=== PATIENT | female | born 1965 | race Hispanic/Latino ===

== ENCOUNTER 2018-04-05 13:32 | Inpatient (IN) | payer OTHER ==
[2018-04-05 15:18] LABS: Basophils # (Auto) 0.1 K/mm3 (0.0-0.1); Basophils % (Auto) 0.7 % (0.0-1.8); Eosinophils # (Auto) 0.3 K/mm3 (0.0-0.4); Eosinophils % (Auto) 2.2 % (0.0-4.3); Hematocrit 49.8 % (30.3-42.9); Hemoglobin 17.4 gm/dl (10.1-14.3); Lymphocytes # (Auto) 1.6 K/mm3 (1.2-5.4); Lymphocytes % (Auto) 10.6 % (13.4-35.0); Mean Corpuscular HGB Conc 35 % (30-34); Mean Corpuscular Hemoglobin 33 pg (28-32); Mean Corpuscular Volume 94 fl (79-97); Monocytes # (Auto) 1.1 K/mm3 (0.0-0.8); Monocytes % (Auto) 7.6 % (0.0-7.3); Platelet Count 341 K/mm3 (140-440); Red Blood Count 5.32 M/mm3 (3.65-5.03); Red Cell Distribution Width 12.7 % (13.2-15.2)
[2018-04-05 15:28] LABS: Bacteria,Urine 2+ /HPF (Negative); Bilirubin,Urine NEG (Negative); Blood,Urine MOD (Negative); Color,Urine Yellow (Yellow); Mucus,Urine FEW /HPF
[2018-04-05 15:29] LABS: WBC,Urine > 182.0 /HPF (0.0-6.0)
[2018-04-05 15:37] LABS: Alanine Aminotransferase 12 units/L (7-56); Albumin 3.9 g/dL (3.9-5); BUN/Creatinine Ratio 22; Blood Urea Nitrogen 13 mg/dL (7-17); Calcium 9.8 mg/dL (8.4-10.2); Hemolysis Index 16; Lipase 18 units/L (13-60)
[2018-04-05] MEDS ORDERED: MORPHINE IV ONE ×3 (16:58→20:39)
[2018-04-05] MEDS ORDERED: ZOFRAN IV ONE (16:58)
[2018-04-05] MEDS ORDERED: NACL 0.9% 1000 ML 1,000 ML IV ONE (16:58)
--- NOTE | 2018-04-05 17:02 | Emergency Department Report ---
<LAUREL PENNY - Last Filed: 04/06/18 03:16> ED Abdominal Pain HPI - General Chief Complaint: Abdominal Pain Stated Complaint: LEFT FLANK PAIN Time Seen by Provider: 04/05/18 16:58 - Related Data Allergies Allergy/AdvReac Type Severity Reaction Status Date / Time No Known Allergies Allergy Verified 04/05/18 22:18 ED Review of Systems ROS: Stated complaint: LEFT FLANK PAIN Other details as noted in HPI ED Course Vital Signs 04/05/18 04/05/18 04/06/18 14:18 22:30 01:21 Temperature 97.5 F L 100.2 F H Pulse Rate 91 H 106 H 122 H Respiratory 18 18 17 Rate Blood Pressure 137/87 Blood Pressure 128/76 131/73 [Right] O2 Sat by Pulse 100 99 99 Oximetry 04/06/18 04/06/18 03:40 04:27 Temperature 99.1 F 98.7 F Pulse Rate 128 H 102 H Respiratory 18 17 Rate Blood Pressure Blood Pressure [Right] O2 Sat by Pulse 97 98 Oximetry ED Medical Decision Making - Lab Data Result diagrams: 04/05/18 14:45 04/05/18 14:45 - Radiology Data Radiology results: report reviewed, image reviewed FINAL REPORT PROCEDURE: CT ABDOMEN PELVIS W CON TECHNIQUE: Computerized axial tomography of the abdomen and pelvis was performed after the IV injection of iodinated nonionic contrast. HISTORY: LLQ and Left Flank pain COMPARISON: No prior studies are available for comparison. FINDINGS: Lower Lung aguilar: No focal abnormality seen. Upper Abdomen: The liver is unremarkable. Gallbladder is distended otherwise unremarkable. The adrenal glands, the pancreas and the spleen show no abnormalities. Kidneys, Ureters and Urinary bladder: There is moderate left-sided hydronephrosis secondary to a calculus in the distal 3rd of the left ureter measuring 7.3 x 3.0 millimeters on coronal image 76 series 602, axial image 125 series 2. This is located approximately 2.5 centimeter from the left ureterovesical junction. Left ureter is diffusely distended. There is slight decreased perfusion in the left kidney compared to the right suggesting a high-grade obstruction. Nonobstructing calculus is visualized in the lower 3rd of the left kidney measuring 12.5 x 6.1 by 8.8 millimeters. The kidneys otherwise are unremarkable. Urinary bladder is only partially filled although shows no focal abnormality. Retroperitoneum: Atherosclerotic changes are seen in the abdominal aorta. No aneurysm is visualized. Nonspecific subcentimeter lymph nodes are seen in the retroperitoneum. No pathologically enlarged lymph nodes are identified. Bowel: No focal bowel loop abnormalities are identified. No evidence of bowel obstruction or ascites. There is no free intraperitoneal gas. The appendix is not clearly visualized. Reproductive organs: Uterus appears to be enlarged showing heterogeneous density and calcifications. I suspect a fibroid uterus is present. No abnormal adnexal masses are seen. Other: No acute bony abnormalities are seen. IMPRESSION: Moderate left-sided hydronephrosis secondary to a distal left ureteral calculus as described. High-grade obstruction is suspected. Nonobstructing calculus also seen in the left kidney. Fibroid uterus suspected. Follow-up pelvic ultrasound would be helpful. Transcribed By: ROBY Dictated By: JULIO FAM MD Electronically Authenticated By: JULIO FAM MD Signed Date/Time: 04/05/181921 DD/ 21 TD/TT: 04/05/181921 - Medical Decision Making This patient's been handed off to me pH refill. I made a call to the gaming commissioner urologist for concerns of a moderate left side hydronephrosis secondary to a distal left ureter calculus as described above which it measures 7.3 x 3.0 mm and she has a left ureter diffuse distended with a slight decreased perfusion to the left kidney compared to the right. She has a nonobstructing car collided visualized in the lower third of the left kidney measuring 12.5 x 6.1 x 8.8 mm. This provider called she reports that the patient needs to follow up in his clinic at 9:00 in the morning and to give her plenty of pain medication. This provider will go ahead and give 1 g of Rocephin to cover the patient. Spoke with hospitalist to admit patient for a retractable pain. In hydronephrosis with obstructing renal calculi 7.3 x 3. Patient has spiked a fever of 100.3 and is tachycardic at 133. We will give patient Tylenol 650 mg. Patient will be transferred upstairs to her room. Critical care attestation.: If time is entered above; I have spent that time in minutes in the direct care of this critically ill patient, excluding procedure time. ED Disposition Clinical Impression: Kidney stone on left side UTI (urinary tract infection) Qualifiers: Urinary tract infection type: acute pyelonephritis Qualified Code(s): N10 - Acute pyelonephritis Disposition: OP ADMIT IP TO THIS HOSP Is pt being admited?: Yes Does the pt Need Aspirin: No Condition: Stable <ZEESHAN DOUGLAS D - Last Filed: 04/07/18 10:11> ED Abdominal Pain HPI - General Source: patient Mode of arrival: Ambulatory Limitations: No Limitations - History of Present Illness Initial Comments: Patient reports nausea, left lower quadrant and left flank pain that started last night. She reports she was seen and treated at [facility] 3 months ago and diagnosed with a kidney infection. She denies any other medical history MD Complaint: abdominal pain (LLQ), flank pain (left) Onset/Timin -: hour(s) Location: LLQ, L flank Radiation: L flank Migration to: no migration Severity: severe Severity scale (0 -10): 10 Quality: aching, sharp Consistency: constant Improves With: nothing Worsens With: eating, movement Context: other (none) Associated Symptoms: nausea. denies: vomiting, diarrhea, fever, chills, constipation, dysuria, hematemesis, hematochezia, melena, hematuria, anorexia, syncope Treatments Prior to Arrival: other (Tylenol) - Related Data LMP (females 10-50): other (menopausal) ED Review of Systems Constitutional: denies: chills, fever Eyes: denies: eye pain, eye discharge, vision change ENT: denies: ear pain, throat pain Respiratory: denies: cough, orthopnea, shortness of breath, SOB with exertion, SOB at rest, stridor, wheezing Cardiovascular: denies: chest pain, palpitations, dyspnea on exertion, orthopnea , edema, syncope, paroxysmal nocturnal dyspnea Endocrine: no symptoms reported Gastrointestinal: abdominal pain, nausea. denies: vomiting, diarrhea, constipation, hematemesis, melena, hematochezia Genitourinary: denies: urgency, dysuria, discharge Musculoskeletal: back pain (left flank). denies: joint swelling, arthralgia Skin: denies: rash, lesions Neurological: denies: headache, weakness, paresthesias Psychiatric: denies: anxiety, depression Hematological/Lymphatic: denies: easy bleeding, easy bruising ED Past Medical Hx - Past Medical History Hx Kidney Stones: Yes (STONES) - Social History Smoking Status: Current Every Day Smoker Substance Use Type: None ED Physical Exam - General Limitations: No Limitations General appearance: alert, in no apparent distress, other - ENT ENT exam: Present: mucous membranes moist - Neck Neck exam: Present: normal inspection, full ROM. Absent: tenderness, meningismus, lymphadenopathy, thyromegaly - Respiratory Respiratory exam: Present: normal lung sounds bilaterally. Absent: respiratory distress, wheezes, rales, rhonchi, stridor, chest wall tenderness, accessory muscle use, decreased breath sounds, prolonged expiratory - Cardiovascular Cardiovascular Exam: Present: regular rate, normal rhythm, normal heart sounds. Absent: bradycardia, tachycardia, irregular rhythm, systolic murmur, diastolic murmur, rubs, gallop - GI/Abdominal GI/Abdominal exam: Present: soft, tenderness (LLQ), normal bowel sounds. Absent : distended, guarding, rebound, rigid, diminished bowel sounds, hyperactive bowel sounds, hypoactive bowel sounds, organomegaly, mass, bruit, pulsatile mass , hernia - Expanded GI/Abdominal Exam Expanded GI/Abdominal exam: Absent: psoas sign, obturator sign, heel tap sign, Tobin's sign, Rovsing's sign, tenderness at Mcburney's Point, ascites - Extremities Exam Extremities exam: Present: normal inspection, full ROM, normal capillary refill. Absent: tenderness, pedal edema, joint swelling, calf tenderness - Back Exam Back exam: Present: normal inspection, full ROM, CVA tenderness (L). Absent: tenderness, CVA tenderness (R), muscle spasm, paraspinal tenderness, vertebral tenderness - Neurological Exam Neurological exam: Present: alert, oriented X3, CN II-XII intact, normal gait, reflexes normal. Absent: motor sensory deficit - Psychiatric Psychiatric exam: Present: normal affect, normal mood - Skin Skin exam: Present: warm, dry, intact, normal color. Absent: rash ED Course - Reevaluation(s) Reevaluation #1: 04/05/18 17:04 Normal saline, pain medication, antiemetic, laboratory and radiology studies ordered Reevaluation #2: 04/05/18 18:03 pain ordered ED Medical Decision Making - Lab Data Result diagrams: 04/05/18 14:45 04/05/18 14:45 Lab Results 04/05/18 04/05/18 04/05/18 Range/Units 14:45 14:45 14:45 WBC 15.0 H (4.5-11.0) K/mm3 RBC 5.32 H (3.65-5.03) M/mm3 Hgb 17.4 H (10.1-14.3) gm/dl Hct 49.8 H (30.3-42.9) % MCV 94 (79-97) fl MCH 33 H (28-32) pg MCHC 35 H (30-34) % RDW 12.7 L (13.2-15.2) % Plt Count 341 (140-440) K/mm3 Lymph % (Auto) 10.6 L (13.4-35.0) % [place] % (Auto) 7.6 H (0.0-7.3) % Eos % (Auto) 2.2 (0.0-4.3) % Baso % (Auto) 0.7 (0.0-1.8) % Lymph # 1.6 (1.2-5.4) K/mm3 [place] # 1.1 H (0.0-0.8) K/mm3 Eos # 0.3 (0.0-0.4) K/mm3 Baso # 0.1 (0.0-0.1) K/mm3 Seg Neutrophils % 78.9 H (40.0-70.0) % Seg Neutrophils # 11.8 H (1.8-7.7) K/mm3 Sodium 140 (137-145) mmol/L Potassium 4.8 (3.6-5.0) mmol/L Chloride 100.5 (98-107) mmol/L Carbon Dioxide 27 (22-30) mmol/L Anion Gap 17 mmol/L BUN 13 (7-17) mg/dL Creatinine 0.6 L (0.7-1.2) mg/dL Estimated GFR > 60 ml/min BUN/Creatinine Ratio 22 % Glucose 110 H (65-100) mg/dL Calcium 9.8 (8.4-10.2) mg/dL Total Bilirubin 1.30 H (0.1-1.2) mg/dL AST 19 (5-40) units/L ALT 12 (7-56) units/L Alkaline Phosphatase 65 (35-129) units/L Total Protein 7.7 (6.3-8.2) g/dL Albumin 3.9 (3.9-5) g/dL Albumin/Globulin Ratio 1.0 % Lipase 18 (13-60) units/L Urine Color Yellow (Yellow) Urine Turbidity Clear (Clear) Urine pH 7.0 (5.0-7.0) Ur Specific [place] 1.020 (1.003-1.030) Urine Protein 100 mg/dl (Negative) mg/dL Urine Glucose (UA) Neg (Negative) mg/dL Urine Ketones Neg (Negative) mg/dL Urine Blood Mod (Negative) Urine Nitrite Pos (Negative) Urine Bilirubin Neg (Negative) Urine Urobilinogen 4.0 (<2.0) mg/dL Ur Leukocyte Esterase Lg (Negative) Urine WBC (Auto) > 182.0 H (0.0-6.0) /HPF Urine RBC (Auto) 41.0 (0.0-6.0) /HPF U Epithel Cells (Auto) 4.0 (0-13.0) /HPF Urine Bacteria (Auto) 2+ (Negative) /HPF Urine WBC Clumps 3+ /HPF Urine Mucus Few /HPF Temp Pulse Resp BP Pulse Ox 99.0 F 86 18 148/97 97 04/07/18 08:24 04/07/18 08:24 04/07/18 08:24 04/07/18 08:24 04/07/18 08:24 - Differential Diagnosis Left Kidney Hydronephrosis, Retractable Pain
--- NOTE | 2018-04-05 19:26 | Cat Scan Report ---
FINAL REPORT PROCEDURE: CT ABDOMEN PELVIS W CON TECHNIQUE: Computerized axial tomography of the abdomen and pelvis was performed after the IV injection of iodinated nonionic contrast. HISTORY: LLQ and Left Flank pain COMPARISON: No prior studies are available for comparison. FINDINGS: Lower Lung aguilar: No focal abnormality seen. Upper Abdomen: The liver is unremarkable. Gallbladder is distended otherwise unremarkable. The adrenal glands, the pancreas and the spleen show no abnormalities. Kidneys, Ureters and Urinary bladder: There is moderate left-sided hydronephrosis secondary to a calculus in the distal 3rd of the left ureter measuring 7.3 x 3.0 millimeters on coronal image 76 series 602, axial image 125 series 2. This is located approximately 2.5 centimeter from the left ureterovesical junction. Left ureter is diffusely distended. There is slight decreased perfusion in the left kidney compared to the right suggesting a high-grade obstruction. Nonobstructing calculus is visualized in the lower 3rd of the left kidney measuring 12.5 x 6.1 by 8.8 millimeters. The kidneys otherwise are unremarkable. Urinary bladder is only partially filled although shows no focal abnormality. Retroperitoneum: Atherosclerotic changes are seen in the abdominal aorta. No aneurysm is visualized. Nonspecific subcentimeter lymph nodes are seen in the retroperitoneum. No pathologically enlarged lymph nodes are identified. Bowel: No focal bowel loop abnormalities are identified. No evidence of bowel obstruction or ascites. There is no free intraperitoneal gas. The appendix is not clearly visualized. Reproductive organs: Uterus appears to be enlarged showing heterogeneous density and calcifications. I suspect a fibroid uterus is present. No abnormal adnexal masses are seen. Other: No acute bony abnormalities are seen. IMPRESSION: Moderate left-sided hydronephrosis secondary to a distal left ureteral calculus as described. High-grade obstruction is suspected. Nonobstructing calculus also seen in the left kidney. Fibroid uterus suspected. Follow-up pelvic ultrasound would be helpful.
[2018-04-05] MEDS ORDERED: ROCEPHIN/NS 1 GM/50 ML 1 GM/50 ML BAG IV ONE (22:10)
[2018-04-05] MEDS ORDERED: cefTRIAXone 1 GM in NACL 0.9% 20 ML IV ONE (22:15)
[2018-04-05] MEDS ORDERED: ZOFRAN IV PRN (23:20)
[2018-04-06] MEDS: TYLENOL PO PRN (01:30)
[2018-04-06] MEDS ORDERED: TYLENOL ONE (01:32)
[2018-04-06] MEDS ORDERED: NACL 0.9% 1000 ML 1,000 ML ONE (03:47)
[2018-04-06] MEDS ORDERED: NACL 0.9% 1000 ML 1,000 ML IV ONE (03:55)
[2018-04-06] MEDS: DILAUDID IV PRN ×3 (06:13→19:49)
[2018-04-06] MEDS: NACL 0.9% 1000 ML 1,000 ML IV SCH ×3 (06:13→19:40)
--- NOTE | 2018-04-06 08:31 | Progress Note ---
Assessment and Plan Assessment and plan: 52-year-old woman who presented with left flank pain, found to have obstructive calculi on the left side causing left hydronephrosis and UTI Obstructive uropathy -Consult urology Acute nephrolithiasis with obstruction -Urology consult for lithotripsy UTI Continue antibiotics, obtain urine cultures History Interval history: c/o L flank pain Review of systems Constitutional: No fevers, no malaise, no joint pains CVS: No chest pain, no orthopnea, no dyspnea on exertion, no pedal edema GI: No abdominal pain, no diarrhea, no vomiting, no constipation Respiratory: No shortness of breath, no wheezing, no coughing Hospitalist Physical - Physical exam Narrative exam: General.: Appears well, no distress, nontoxic HEENT: Moist mucous membranes, extraocular muscles intact, no lymphadenopathy Neck: supple Cardiac: S1-S2 heard Lungs: clear to auscultation bilaterally Abdomen: soft , nontender, nondistended, bowel sounds positive left flank tender Extremities: no edema clubbing or cyanosis Skin: no rash or lesions Neurologic: no gross focal deficits Psych: appropriate behavior, appropriate mood, corporative, judgment intact - Constitutional Vitals: Temp Pulse Resp BP Pulse Ox 98.7 F 102 H 17 131/73 98 04/06/18 04:27 04/06/18 04:27 04/06/18 04:27 04/06/18 01:21 04/06/18 04:27 Results - Labs CBC & Chem 7: 04/05/18 14:45 04/05/18 14:45 Labs: Laboratory Last Values WBC 15.0 K/mm3 (4.5-11.0) H 04/05/18 14:45 RBC 5.32 M/mm3 (3.65-5.03) H 04/05/18 14:45 Hgb 17.4 gm/dl (10.1-14.3) H 04/05/18 14:45 Hct 49.8 % (30.3-42.9) H 04/05/18 14:45 MCV 94 fl (79-97) 04/05/18 14:45 MCH 33 pg (28-32) H 04/05/18 14:45 MCHC 35 % (30-34) H 04/05/18 14:45 RDW 12.7 % (13.2-15.2) L 04/05/18 14:45 Plt Count 341 K/mm3 (140-440) 04/05/18 14:45 Lymph % (Auto) 10.6 % (13.4-35.0) L 04/05/18 14:45 [place] % (Auto) 7.6 % (0.0-7.3) H 04/05/18 14:45 Eos % (Auto) 2.2 % (0.0-4.3) 04/05/18 14:45 Baso % (Auto) 0.7 % (0.0-1.8) 04/05/18 14:45 Lymph # 1.6 K/mm3 (1.2-5.4) 04/05/18 14:45 [place] # 1.1 K/mm3 (0.0-0.8) H 04/05/18 14:45 Eos # 0.3 K/mm3 (0.0-0.4) 04/05/18 14:45 Baso # 0.1 K/mm3 (0.0-0.1) 04/05/18 14:45 Seg Neutrophils % 78.9 % (40.0-70.0) H 04/05/18 14:45 Seg Neutrophils # 11.8 K/mm3 (1.8-7.7) H 04/05/18 14:45 Sodium 140 mmol/L (137-145) 04/05/18 14:45 Potassium 4.8 mmol/L (3.6-5.0) 04/05/18 14:45 Chloride 100.5 mmol/L (98-107) 04/05/18 14:45 Carbon Dioxide 27 mmol/L (22-30) 04/05/18 14:45 Anion Gap 17 mmol/L 04/05/18 14:45 BUN 13 mg/dL (7-17) 04/05/18 14:45 Creatinine 0.6 mg/dL (0.7-1.2) L 04/05/18 14:45 Estimated GFR > 60 ml/min 04/05/18 14:45 BUN/Creatinine Ratio 22 % 04/05/18 14:45 Glucose 110 mg/dL (65-100) H 04/05/18 14:45 Calcium 9.8 mg/dL (8.4-10.2) 04/05/18 14:45 Total Bilirubin 1.30 mg/dL (0.1-1.2) H 04/05/18 14:45 AST 19 units/L (5-40) 04/05/18 14:45 ALT 12 units/L (7-56) 04/05/18 14:45 Alkaline Phosphatase 65 units/L (35-129) 04/05/18 14:45 Total Protein 7.7 g/dL (6.3-8.2) 04/05/18 14:45 Albumin 3.9 g/dL (3.9-5) 04/05/18 14:45 Albumin/Globulin Ratio 1.0 % 04/05/18 14:45 Lipase 18 units/L (13-60) 04/05/18 14:45 Urine Color Yellow (Yellow) 04/05/18 14:45 Urine Turbidity Clear (Clear) 04/05/18 14:45 Urine pH 7.0 (5.0-7.0) 04/05/18 14:45 Ur Specific [place] 1.020 (1.003-1.030) 04/05/18 14:45 Urine Protein 100 mg/dl mg/dL (Negative) 04/05/18 14:45 Urine Glucose (UA) Neg mg/dL (Negative) 04/05/18 14:45 Urine Ketones Neg mg/dL (Negative) 04/05/18 14:45 Urine Blood Mod (Negative) 04/05/18 14:45 Urine Nitrite Pos (Negative) 04/05/18 14:45 Urine Bilirubin Neg (Negative) 04/05/18 14:45 Urine Urobilinogen 4.0 mg/dL (<2.0) 04/05/18 14:45 Ur Leukocyte Esterase Lg (Negative) 04/05/18 14:45 Urine WBC (Auto) > 182.0 /HPF (0.0-6.0) H 04/05/18 14:45 Urine RBC (Auto) 41.0 /HPF (0.0-6.0) 04/05/18 14:45 U Epithel Cells (Auto) 4.0 /HPF (0-13.0) 04/05/18 14:45 Urine Bacteria (Auto) 2+ /HPF (Negative) 04/05/18 14:45 Urine WBC Clumps 3+ /HPF 04/05/18 14:45 Urine Mucus Few /HPF 04/05/18 14:45
--- NOTE | 2018-04-06 09:12 | History and Physical Report ---
CHIEF COMPLAINT: Left flank pain. HISTORY OF PRESENT ILLNESS: The patient is a 52-year-old female who was having left flank pain that started the night prior to presentation, there was also history of associated nausea. The patient states she was seen and treated at [facility] three months ago with a diagnosis of kidney infection. There was no history of fever, no history of chills, no history of vomiting or diarrhea. The patient presented to the Emergency Room where she was evaluated and found to have left ureteral calculus, and presented for admission. PAST MEDICAL HISTORY: Pertinent for kidney stones. PAST SURGICAL HISTORY: Unremarkable. FAMILY HISTORY: Noncontributory. SOCIAL HISTORY: The patient smokes cigarettes, does not drink alcohol, and does not use illicit drugs. MEDICATIONS: The patient's home medications are not known. ALLERGIES: There are no known drug allergies. REVIEW OF SYSTEMS: CONSTITUTIONAL: There is no fever, no chills, no diaphoresis. HEENT: There is no headache or sore throat. CARDIOVASCULAR SYSTEM: There is no chest pain or orthopnea. RESPIRATORY SYSTEM: There is no shortness of breath or cough. GASTROINTESTINAL SYSTEM: There is nausea with no vomiting, no abdominal pain, diarrhea or constipation. NEUROLOGICAL SYSTEM: There is no numbness, no dizziness, no altered mental status. MUSCULOSKELETAL SYSTEM: There is no joint pain or swelling. DERMATOLOGICAL SYSTEM: There is no skin rash or itching. GENITOURINARY SYSTEM: There is left flank pain. No dysuria or hematuria. Rest of system review is normal. PHYSICAL EXAMINATION: GENERAL: At the time of my exam, the patient was found to be alert, oriented x 3, and in mild distress due to left flank pain. VITAL SIGNS: Shows temperature of 97.5 degree Fahrenheit, pulse of 94, respiration 18, blood pressure 137/87, O2 sat of 100% on room air. HEENT: Exam showed pupils to be equal, round, and reactive to light and accommodation. Extraocular muscles are intact. NECK: Supple, with no JVD or carotid bruit. CARDIOVASCULAR SYSTEM: Show normal first and second heart sounds with no gallops or murmurs. RESPIRATORY SYSTEM: Show good air entry on both sides of the lung with no abnormal breath sounds. GASTROINTESTINAL SYSTEM: Show abdomen to be full, soft, nontender, with no organomegaly or rigidity. NEUROLOGIC: Exam shows no focal deficit. MUSCULOSKELETAL SYSTEM: Show no joint swelling or tenderness. DERMATOLOGICAL SYSTEM: Show no skin rash. GENITOURINARY SYSTEM: Showing left costovertebral angle tenderness. PERTINENT LABORATORY AND IMAGING STUDIES: The patient had CBC done with elevated white count 15,000, with a high hemoglobin of 17.4, high hematocrit of 49.8, with normal platelet, CBC with differential showing high monocyte count of 7.6%, and high segmented neutrophil count of 78.9. The patient's chemistry shows normal electrolytes with slightly elevated total bilirubin of 1.3. The patient's urinalysis show positive urine nitrites with large leukocyte esterase, elevated urine wbc of greater than 182, and high urine rbc of 41, with 2+ bacteria. The patient's imaging studies show CT of the abdomen and pelvis with contrast that was read to show moderate left-sided hydronephrosis secondary to a calculus in the distal end of the left ureter measuring 7.3 x 3 mm and is located approximately 2.5 cm from the left ureterovesical junction, and also, there is finding of a normal obstructing calculus measuring 12.5 x 6 x 8.8 mm. DIAGNOSES: 1. Left ureteral calculus with hydronephrosis. 2. Urinary tract infection. CARE OF PLAN: 1. The patient will be admitted to medical/surgical [place] and will be on intravenous normal saline running at 150 mL an hour. 2. The patient will be on intravenous ceftriaxone 1 g daily for treatment of urinary tract infection. 3. The patient will be on intravenous hydromorphone or Dilaudid 0.5 mg and also intravenous Zofran 4 mg every 6 hours for nausea and vomiting. 4. The patient will be on Tylenol 650 mg every 4 hours for fever and headache. 5. The patient will have a Urology consult with . 6. The patient's home medications will be reconciled and started accordingly when they are known. JOB# [id number] [facility]/BHARAT BRODERICK
[2018-04-06] MEDS ORDERED: ROCEPHIN/NS 1 GM/50 ML 1 GM/50 ML BAG IV SCH (10:00)
[2018-04-06] MEDS: HEPARIN SUB-Q SCH ×2 (10:45→22:20)
[2018-04-06] MEDS ORDERED: cefTRIAXone 1 GM in NACL 0.9% 20 ML IV SCH (22:00)
[2018-04-07] MEDS: TYLENOL PO PRN (01:59)
[2018-04-07] MEDS: NACL 0.9% 1000 ML 1,000 ML IV SCH ×2 (02:02→10:47)
[2018-04-07] MEDS: HEPARIN SUB-Q SCH (09:56)
[2018-04-07] MEDS: DILAUDID IV PRN ×2 (10:46→15:38)
--- NOTE | 2018-04-07 12:48 | Progress Note ---
Assessment and Plan Assessment and plan: 52-year-old woman who presented with left flank pain, found to have obstructive calculi on the left side causing left hydronephrosis and UTI CT Abdomen and pelvis Moderate left-sided hydronephrosis secondary to a distal left ureteral calculus as described. High-grade obstruction is suspected. Nonobstructing calculus also seen in the left kidney. Fibroid uterus suspected. Follow-up pelvic ultrasound would be helpful. Obstructive uropathy -Consult urology, spoke to Dr Dolan , for stent tomorrow Acute nephrolithiasis with obstruction -Urology consult for lithotripsy UTI Continue antibiotics, obtain urine cultures History Interval history: c/o L flank pain Review of systems Constitutional: No fevers, no malaise, no joint pains CVS: No chest pain, no orthopnea, no dyspnea on exertion, no pedal edema GI: No abdominal pain, no diarrhea, no vomiting, no constipation Respiratory: No shortness of breath, no wheezing, no coughing Hospitalist Physical - Physical exam Narrative exam: General.: Appears well, no distress, nontoxic HEENT: Moist mucous membranes, extraocular muscles intact, no lymphadenopathy Neck: supple Cardiac: S1-S2 heard Lungs: clear to auscultation bilaterally Abdomen: soft , nontender, nondistended, bowel sounds positive left flank tender Extremities: no edema clubbing or cyanosis Skin: no rash or lesions Neurologic: no gross focal deficits Psych: appropriate behavior, appropriate mood, corporative, judgment intact - Constitutional Vitals: Temp Pulse Resp BP Pulse Ox 99.0 F 86 18 148/97 97 04/07/18 08:24 04/07/18 08:24 04/07/18 08:24 04/07/18 08:24 04/07/18 08:24 Results - Labs CBC & Chem 7: 04/05/18 14:45 04/05/18 14:45 Labs: Laboratory Last Values WBC 15.0 K/mm3 (4.5-11.0) H 04/05/18 14:45 RBC 5.32 M/mm3 (3.65-5.03) H 04/05/18 14:45 Hgb 17.4 gm/dl (10.1-14.3) H 04/05/18 14:45 Hct 49.8 % (30.3-42.9) H 04/05/18 14:45 MCV 94 fl (79-97) 04/05/18 14:45 MCH 33 pg (28-32) H 04/05/18 14:45 MCHC 35 % (30-34) H 04/05/18 14:45 RDW 12.7 % (13.2-15.2) L 04/05/18 14:45 Plt Count 341 K/mm3 (140-440) 04/05/18 14:45 Lymph % (Auto) 10.6 % (13.4-35.0) L 04/05/18 14:45 [place] % (Auto) 7.6 % (0.0-7.3) H 04/05/18 14:45 Eos % (Auto) 2.2 % (0.0-4.3) 04/05/18 14:45 Baso % (Auto) 0.7 % (0.0-1.8) 04/05/18 14:45 Lymph # 1.6 K/mm3 (1.2-5.4) 04/05/18 14:45 [place] # 1.1 K/mm3 (0.0-0.8) H 04/05/18 14:45 Eos # 0.3 K/mm3 (0.0-0.4) 04/05/18 14:45 Baso # 0.1 K/mm3 (0.0-0.1) 04/05/18 14:45 Seg Neutrophils % 78.9 % (40.0-70.0) H 04/05/18 14:45 Seg Neutrophils # 11.8 K/mm3 (1.8-7.7) H 04/05/18 14:45 Sodium 140 mmol/L (137-145) 04/05/18 14:45 Potassium 4.8 mmol/L (3.6-5.0) 04/05/18 14:45 Chloride 100.5 mmol/L (98-107) 04/05/18 14:45 Carbon Dioxide 27 mmol/L (22-30) 04/05/18 14:45 Anion Gap 17 mmol/L 04/05/18 14:45 BUN 13 mg/dL (7-17) 04/05/18 14:45 Creatinine 0.6 mg/dL (0.7-1.2) L 04/05/18 14:45 Estimated GFR > 60 ml/min 04/05/18 14:45 BUN/Creatinine Ratio 22 % 04/05/18 14:45 Glucose 110 mg/dL (65-100) H 04/05/18 14:45 Calcium 9.8 mg/dL (8.4-10.2) 04/05/18 14:45 Total Bilirubin 1.30 mg/dL (0.1-1.2) H 04/05/18 14:45 AST 19 units/L (5-40) 04/05/18 14:45 ALT 12 units/L (7-56) 04/05/18 14:45 Alkaline Phosphatase 65 units/L (35-129) 04/05/18 14:45 Total Protein 7.7 g/dL (6.3-8.2) 04/05/18 14:45 Albumin 3.9 g/dL (3.9-5) 04/05/18 14:45 Albumin/Globulin Ratio 1.0 % 04/05/18 14:45 Lipase 18 units/L (13-60) 04/05/18 14:45 Urine Color Yellow (Yellow) 04/05/18 14:45 Urine Turbidity Clear (Clear) 04/05/18 14:45 Urine pH 7.0 (5.0-7.0) 04/05/18 14:45 Ur Specific [place] 1.020 (1.003-1.030) 04/05/18 14:45 Urine Protein 100 mg/dl mg/dL (Negative) 04/05/18 14:45 Urine Glucose (UA) Neg mg/dL (Negative) 04/05/18 14:45 Urine Ketones Neg mg/dL (Negative) 04/05/18 14:45 Urine Blood Mod (Negative) 04/05/18 14:45 Urine Nitrite Pos (Negative) 04/05/18 14:45 Urine Bilirubin Neg (Negative) 04/05/18 14:45 Urine Urobilinogen 4.0 mg/dL (<2.0) 04/05/18 14:45 Ur Leukocyte Esterase Lg (Negative) 04/05/18 14:45 Urine WBC (Auto) > 182.0 /HPF (0.0-6.0) H 04/05/18 14:45 Urine RBC (Auto) 41.0 /HPF (0.0-6.0) 04/05/18 14:45 U Epithel Cells (Auto) 4.0 /HPF (0-13.0) 04/05/18 14:45 Urine Bacteria (Auto) 2+ /HPF (Negative) 04/05/18 14:45 Urine WBC Clumps 3+ /HPF 04/05/18 14:45 Urine Mucus Few /HPF 04/05/18 14:45
--- NOTE | 2018-04-07 16:31 | Consultation ---
History of Present Illness - Reason for Consult Consult date: 04/07/18 left obstructing ureteral stone - History of Present Illness Patient with a history of multiple recurrent renal stones who presents with a two-month history of left flank pain. CT of the abdomen was performed which demonstrates left hydroureteronephrosis and an elevated white count. He gets additionally, the patient has a fever to 101.9 on initial presentation. 2 days later, Past History Past Medical History: other (multiple renal stones.) Past Surgical History: Other (history of ureteral stent placement) Social history: no significant social history Family history: no significant family history Medications and Allergies Allergies Allergy/AdvReac Type Severity Reaction Status Date / Time No Known Allergies Allergy Verified 04/05/18 22:18 Active Meds: Active Medications Acetaminophen (Tylenol) 650 mg PO Q4H PRN PRN Reason: Fever >101 Last Admin: 04/07/18 01:59 Dose: 650 mg Heparin Sodium (Porcine) (Heparin) 5,000 unit SUB-Q Q12HR [facility] Last Admin: 04/07/18 09:56 Dose: 5,000 unit Hydromorphone HCl (Dilaudid) 0.5 mg IV Q4H PRN PRN Reason: Pain, Moderate (4-6) Last Admin: 04/07/18 15:38 Dose: 0.5 mg Sodium Chloride (Nacl 0.9% 1000 Ml) 1,000 mls @ 150 mls/hr IV DIRECT [facility] Last Admin: 04/07/18 10:47 Dose: 150 mls/hr Ceftriaxone Sodium 1 gm/ (Sodium Chloride) 20 mls @ 2 mls/min IV Q24HR@2200 [facility] Last Admin: 04/06/18 22:21 Dose: 2 mls/min Ondansetron HCl (Zofran) 4 mg IV Q6H PRN PRN Reason: Nausea And Vomiting Review of Systems All systems: negative Exam - Constitutional Vitals: Temp Pulse Resp BP Pulse Ox 99.0 F 86 18 148/97 97 04/07/18 08:24 04/07/18 08:24 04/07/18 08:24 04/07/18 08:24 04/07/18 08:24 General appearance: Present: no acute distress - EENT Eyes: Present: PERRL ENT: hearing intact - Neck Neck: Present: supple, normal ROM - Respiratory Respiratory effort: normal - Extremities Extremities: no ischemia Extremity abnormal: edema - Abdominal General gastrointestinal: Present: deferred - Rectal Rectal Exam: deferred - Musculoskeletal Musculoskeletal: strength equal bilaterally - Neurologic Neurologic: CNII-XII intact Results - Labs CBC & Chem 7: 04/05/18 14:45 04/05/18 14:45 - Imaging and Cardiology CT scan - abdomen: image reviewed Assessment and Plan Patient with a history of multiple renal stones in the past. On presentation she was noted to have an obstructing stone on the left with left hydroureteronephrosis. Patient has stabilized clinically on IV fluids and IV antibiotics. She will be made nothing by mouth past midnight. Tomorrow, the patient will undergo cystoscopy and placement of a ureteral stent. If that is unsuccessful, the patient will need a left-sided nephrostomy tube to decompress the left collecting system.
--- NOTE | 2018-04-07 16:56 | Progress Note ---
Assessment and Plan looks well , had no idea she was an in pt been eating all day will sched stent poss perc later on pt aware need ureteral stone out before any litho Subjective Date of service: 04/07/18 Principal diagnosis: stones Objective - Constitutional Vitals: Vital Signs - 12hr 04/07/18 04/07/18 05:21 08:24 Temperature 98.7 F 99.0 F Pulse Rate 91 H 86 Respiratory 18 18 Rate Blood Pressure 137/75 148/97 O2 Sat by Pulse 95 97 Oximetry General appearance: Present: no acute distress - Neck Neck: supple - Respiratory Respiratory effort: normal - Gastrointestinal General gastrointestinal: Present: soft, non-tender, non-distended - Labs CBC & Chem 7: 04/05/18 14:45 04/05/18 14:45
[2018-04-07 17:13] VITALS: BP 154/96
--- NOTE | 2018-04-07 20:31 | Consultation ---
HISTORY OF PRESENT ILLNESS: The patient is a 52-year-old woman who presented about 3 months ago with a kidney stone, went to the Emergency Room today at [facility], and was told about the stone, but did not follow up. She came to the Emergency Room on Thursday. They had called me, said they will send her to the office on Thursday and get her pain controlled. I have not heard back. I looked for her yesterday in the office. She did not show up. I was called about an hour ago, saying she is in the hospital and they did admit her, but they did not notify me. She now presents for urological consultation. She has had some fever. She looks great now. She has been eating all day. No nausea or vomiting. Really, no pain at all. PAST MEDICAL HISTORY: Stones. PAST SURGICAL HISTORY: Negative. FAMILY HISTORY: Negative. SOCIAL HISTORY: Smoking. MEDICATIONS: None regularly. ALLERGIES: Negative. REVIEW OF SYSTEMS: Negative. PHYSICAL EXAMINATION: GENERAL: She is here with her sister. She is in no distress. She looks well. She has no complaints. ABDOMEN: Soft, nondistended. No CVA tenderness. IMPRESSION: Ureteral stone with previous infection. We will place a stent. She understands we will not take the stone out at that time. She may require percutaneous nephrostomy. She also has a large stone in the lower pole, infection, partial staghorn, left distal stone, for stenting, and reevaluation after sepsis and infection is gone. There is no acute emergency now. She looks well. I spoke to Dr. Oliva. She is eating and we will do this first thing tomorrow. JOB# [id number] NORMA/NTS
--- NOTE | 2018-04-08 16:45 | Discharge Summary ---
Providers - Providers Date of Admission: 04/05/18 23:15 Attending physician: ALEXANDRO MCNAMARA MD 04/06/18 06:17 Consult to Physician [CONS] Routine Comment: Consulting Provider: MICHAEL PHILLIPS Physician Instructions: Reason For Exam: LEFT URETERAL CALCULUS WITH HYDRONEPHROSIS Primary care physician: GATHERING MACHINE FEEDER Hospitalization Condition: Stable Disposition: [id number] LEFT AGAINST MED ADVICE Exam - Constitutional Vitals: Temp Pulse Resp BP Pulse Ox 99.6 F 101 H 18 154/96 96 04/07/18 16:56 04/07/18 16:56 04/07/18 16:56 04/07/18 16:56 04/07/18 16:56 Plan Follow up with: ITZ CENTENO MD [Primary Care Provider] - 3-5 Days
== END 2018-04-07 20:49 | disposition left against medical advice (07) | DRG 694 ==
LOC: ED 13:32 → 3A 23:15
PROVIDERS: ADMIT Internal Medicine; ATTEND Internal Medicine
DX: N13.2 Hydronephrosis with renal and ureteral calculous obstruction (principal); N39.0 Urinary tract infection, site not specified; F17.200 Nicotine dependence, unspecified, uncomplicated
CPT/HCPCS: 36415; 74177; 80053; 81001; 83690; 85025; 87086; 96374; 96375; 99285; 99406; J0696; J1170; J1644; J2270; J2405; J7030; Q9967